=== PATIENT | male | born 2005 | race American Indian/Alaskan Native ===

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

== ENCOUNTER 2024-05-13 03:17 | Emergency (ER) | payer OTHER ==
[~2024-05-13] VITALS: Ht 195.6 cm; Wt 125.0 kg
[2024-05-13 03:31] LABS: HEMOGLOBIN 16.9 g/dL (12.0-18.0); LYMPHOCYTES 41.4 % (24-44); MCH 30.1 (27-36); MCHC 34.4 g/dl (30-36); MCV 87.5 fl (81-99); MONOCYTES 7.3 % (0-12); NEUTROPHILS 48.3 % (39-80); PLATELET COUNT 262 K/uL (140-440); RDW 12.7 (10.5-15.0)
[2024-05-13 03:54] LABS: ALBUMIN 4.1 g/dL (3.4-5.0); ALBUMIN/GLOBULIN RATIO 0.98 (1.1-2.4); ANION GAP 21.5 (7-21); BILIRUBIN, TOTAL 0.9 ng/dL (0.2-1.0); BUN/CREATININE RATIO 10.58 (6.0-28.6); CALCIUM 8.8 mg/dL (8.5-10.1); CREATININE, SERUM 0.85 mg/dL (0.70-1.30); POTASSIUM 3.5 mmol/L (3.5-5.1); PROTEIN, TOTAL 8.3 g/dL (6.4-8.2)
[2024-05-13 04:22] LABS: INFLUENZA B NAA NEGATIVE (NEGATIVE); RESPIRATORY SYNCYTIAL VIR NAA NEGATIVE (NEGATIVE)
[2024-05-13] MEDS ORDERED: INHALER, ASSIST DEVICES 1 EACH SPACER MISC ONE (04:45)
[2024-05-13] MEDS ORDERED: ALBUTEROL SULFATE 8 GM HOME.PACK INH ONE (04:45)
[2024-05-13 05:05] VITALS: BP 121/75
--- NOTE | 2024-05-14 12:17 | EKG ---
[facility] [address] [facility] [place] [address] Signed Normal sinus rhythm Left axis deviation Abnormal ECG When compared with ECG of 23-OCT-2021 22:12, No significant change was found Confirmed by Kartik Verde MD ([id number]) on 05/14/2024 12:17:32 PM Electronically Signed By: KARTIK VERDE DO 05/14/24 1217 PATIENT NAME: JONATHAN CARVALHOSUZETTE Electrocardiogram DATE OF : [birth year] PHYSICIAN: KARTIK VERDE DO REPORT #: [id number] REPORT IS CONFIDENTIAL AND NOT TO BE RELEASED WITHOUT AUTHORIZATION
== END 2024-05-13 05:06 | disposition home or self-care (01) ==
LOC: ED 03:17
PROVIDERS: Internal Medicine
DX: J20.8 Acute bronchitis due to other specified organisms (principal); F10.129 Alcohol abuse with intoxication, unspecified; Z91.030 Bee allergy status; Z11.52 Encounter for screening for COVID-19
CPT/HCPCS: 36415; 71045; 80053; 83880; 84484; 85025; 87502; 93005; 93010; 94640; 94664; 99285-25; G0480; U0002